=== PATIENT | female | born 1955 | race Caucasian/White ===

== ENCOUNTER 2024-04-08 16:03 | Emergency (ER) | payer OTHER ==
[~2024-04-08] VITALS: Ht 154.9 cm; Wt 74.8 kg
[2024-04-08 16:48] VITALS: BP 154/69; PULSE 73; RESP 16; TEMP 98.4; O2SAT 97
== END 2024-04-08 19:57 | disposition left against medical advice (07) ==
LOC: MED 16:03
DX: R11.2 Nausea with vomiting, unspecified (principal); R10.9 Unspecified abdominal pain; I10 Essential (primary) hypertension; E11.9 Type 2 diabetes mellitus without complications; E03.9 Hypothyroidism, unspecified; Z53.21 Procedure and treatment not carried out due to patient leaving prior to being seen by health care provider